=== PATIENT | male | born 1950 | race Hispanic/Latino ===

== ENCOUNTER 2020-04-23 13:00 | Emergency (ER) | payer OTHER ==
[2020-04-23] MEDS ORDERED: CEPHALEXIN 500 MG CAPSULE ONE (13:31)
== END 2020-04-23 13:38 | disposition home or self-care (01) ==
LOC: EDH 13:00
DX: L03.213 Periorbital cellulitis (principal); Z90.49 Acquired absence of other specified parts of digestive tract